=== PATIENT | male | born 2000 | race Caucasian/White ===

== ENCOUNTER 2024-11-26 15:41 | Emergency (ER) | payer MEDICAID, SELFPAY ==
[2024-11-26 15:45] VITALS: BP 131/78; PULSE 59; TEMP 36.8; O2SAT 98; BMI 30.3
--- NOTE | 2024-11-26 15:54 | ECG_ITS ---
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 Measurements Intervals [place] Rate: 58 P: 62 [place]: 140 QRS: 86 QRSD: 84 T: 65 QT: 410 QTc: 407 Interpretive Statements 1100 Sinus rhythm [address]LEV, PROBABLE NORMAL EARLY REPOL PATTERN Borderline ECG No previous ECG available for comparison Electronically Signed On 11-26-2024 20:58:43 EDT by JEROMY LEE M.D.
--- NOTE | 2024-11-26 15:54 | XR_ITS ---
[address] [address] Patient Name: JEFF SANTIAGO MRN: [id number] date: 2000 Sex: M Assigned Patient Location: ER Current Patient Location: ER Accession/Order Number: [id number] Exam Date: 11/26/2024 16:14 Report Date: 11/26/2024 16:14 At the request of: DENIA MUÑOZ Procedure: XR chest 2V PA AND LATERAL CHEST: CLINICAL HISTORY: pain COMPARISON: None FINDINGS: Unremarkable cardiomediastinal silhouette. Lungs clear. No effusion or pneumothorax. XR/XR chest 2V IMPRESSION: NO ACUTE CARDIOPULMONARY ABNORMALITY. Impression dictated by: Bruce Davenport M.D. 11/26/2024 4:14 PM Dictation Location: [place] [address] Electronically authenticated by: [id number] Y Date: 11/26/2024 16:14
--- NOTE | 2024-11-26 16:05 | ED.CHESTPAI1 ---
HPI - Chest Pain General Chief Complaint: Chest Pain Stated Complaint: CHEST PAINS Time Seen by Provider: 11/26/24 15:54 Source: patient Mode of arrival: walk-in Limitations: no limitations History of Present Illness HPI narrative: 24-year-old male presents for chief complaint of chest pain. He is currently in the rehab facility at [facility]. He states he has pressure to his chest. It is reproducible to palpation of the chest wall. Patient otherwise shows no signs of distress vital signs are stable. Denies a known history of chest pains or cardiac issues. Patient does state that he has been in the rehab facility for 30 days. Related Data Home Medications ?Medication ?Instructions ?Recorded ?Confirmed omeprazole 20 mg capsule,delayed 20 mg PO BID 11/26/24 11/26/24 release sucralfate 1 gram tablet (Carafate) 1 g PO TID 11/26/24 11/26/24 Allergies Allergy/AdvReac Type Severity Reaction Status Date / Time No Known Drug Allergies Allergy Verified 11/26/24 15:48 Review of Systems ROS Status of ROS 10 or more systems reviewed and unremarkable except as noted in history and below PFSH PFSH Social History Little interest or pleasure in doing things: not at all Feeling down, depressed, or hopeless: not at all Exam Narrative Exam Narrative: All Systems are negative except as noted/marked.All systems reviewed and otherwise negative Nurses note and vital signs reviewed and patient is not hypoxic. General: The patient appears well and in no apparent distress. Patient is resting comfortably on cart. Skin: Warm, dry, no pallor noted. There is no rash noted. Head: Normocephalic, atraumatic Eye: Normal conjunctiva, no drainage, EOMI. PERRL Ears, Nose, Mouth, and Throat: oral mucosa is moist. Nares patent. Mouth without vesicles. Ear canals patent. Tm's without Erythema Cardiovascular: Regular Rate and Rhythm reproducible chest wall pain and left anterior chest wall Respiratory: Patient is in no distress, no accessory muscle use, lungs are clear to auscultation, no wheezing, rales or rhonchi Back: non-tender, no CVA tenderness bilaterally to percussion. GI: Normal bowel sounds, no tenderness to palpation, no masses appreciated. No rebound, guarding, or rigidity noted. Musculoskeletal: The patient has no evidence of calf tenderness, no pitting edema, symmetrical pulses noted bilaterally Neurological: A&O x4, normal speech Psychiatric: Cooperative Constitutional Vital Signs, click to edit/add: Last Vital Signs Temp 98.2 F 11/26/24 15:45 Pulse 59 L 11/26/24 15:45 Resp 18 11/26/24 15:45 BP 131/78 11/26/24 15:45 Pulse Ox 98 11/26/24 15:45 O2 Del Method Room Air 11/26/24 15:45 Course Vital Signs Vital signs: Vital Signs Temperature 98.2 F 11/26/24 15:45 Pulse Rate 59 L 11/26/24 15:45 Respiratory Rate 18 11/26/24 15:45 Blood Pressure 131/78 11/26/24 15:45 Pulse Oximetry 98 11/26/24 15:45 Oxygen Delivery Method Room Air 11/26/24 15:45 Temperature 98.2 F 11/26/24 15:45 Pulse Rate 59 L 11/26/24 15:45 Respiratory Rate 18 11/26/24 15:45 Blood Pressure 131/78 11/26/24 15:45 Pulse Oximetry 98 11/26/24 15:45 Oxygen Delivery Method Room Air 11/26/24 15:45 MDM - Chest Pain MDM Narrative Medical decision making narrative: 24-year-old male presents for chief complaint of chest pain. He is currently in the rehab facility at [facility]. He states he has pressure to his chest. It is reproducible to palpation of the chest wall. Patient otherwise shows no signs of distress vital signs are stable. Denies a known history of chest pains or cardiac issues. Patient does state that he has been in the rehab facility for 30 days. Patient presented to the emergency room chief complaint of centralized chest pain with no radiation. Pain is reproducible with palpation of the chest area. Blood work including CBC CMP troponin and urinalysis were obtained. All were negative. Patient was medicated here with Toradol I did help alleviate some of his symptoms. Cardiac score is 0. Patient will be able to be discharged back to the rehab facility. Patient agrees with plan of care. He will be discharged home with chest wall pain instructions. Differential Diagnosis Differential diagnosis: Likely costochondritis and chest pain Medical Records Data Attestation: I reviewed the patient's medical records. Lab Data Attestation: I reviewed the patient's lab results. Labs: Lab Results 11/26/24 Range/Units 16:10 WBC 6.6 (4.0-11.0) 10^3/uL RBC 5.37 (4.70-6.10) 10^6/uL Hgb 16.0 (14.0-18.0) g/dL Hct 46.2 (42.0-54.0) % MCV 86.0 (80.0-94.0) fL MCH 29.8 (25.9-34.0) pg MCHC 34.6 (29.9-35.2) g/dL RDW 11.7 (11.0-15.0) % Plt Count 218 (150-450) 10^3/uL MPV 9.9 (9.5-13.5) fL Neut % (Auto) 60.4 (43.0-75.0) % Lymph % (Auto) 29.5 (20.5-60.0) % Wilcox % (Auto) 7.9 (1.7-12.0) % Eos % (Auto) 1.2 (0.9-7.0) % Baso % (Auto) 0.8 (0.2-2.0) % Neut # (Auto) 4.0 (1.4-6.5) 10^3/uL Lymph # (Auto) 2.0 (1.2-3.8) 10^3/uL Wilcox # (Auto) 0.5 (0.3-0.8) 10^3/uL Eos # (Auto) 0.1 (0.0-0.7) 10^3/uL Baso # (Auto) 0.1 (0.0-0.1) 10^3/uL Abs Immat Gran (auto) 0.01 (0.00-0.03) 10^3/uL Imm/Tot Granulo (auto) 0.2 (0.0-0.5) % ESR 2 (<=15) mm/hr PT 11.4 (9.0-11.6) sec INR 1.08 APTT 30.1 (22.3-36.2) sec Sodium 141 (136-145) mmol/L Potassium 4.6 (3.5-5.1) mmol/L Chloride 106 (98-107) mmol/L Carbon Dioxide 30.4 (21.0-32.0) mmol/L Anion Gap 9.2 BUN 10.0 (7.0-18.0) mg/dL Creatinine 0.90 (0.70-1.30) mg/dL Est GFR ( Amer) >60 (>=60 mL/min/1.73m^2) Est GFR (Non-Af Amer) >60 (>=60 mL/min/1.73m^2) BUN/Creatinine Ratio 11.1 Glucose 95 (74-106) mg/dL Calcium 8.5 (8.5-10.1) mg/dL Total Bilirubin 0.5 (0.2-1.0) mg/dL AST 29 (15-37) U/L ALT 46 (16-63) U/L Alkaline Phosphatase 115 (46-116) U/L Troponin I High Sens 5.9 (4.0-76.1) pg/mL Total Protein 6.9 (6.4-8.2) g/dL Albumin 3.9 (3.4-5.0) g/dL Globulin 3.0 g/dL Albumin/Globulin Ratio 1.3 Salicylates <2.8 (<=19.9) mg/dL Acetaminophen <2.0 L (10.0-30.0) ug/mL Ethanol Quant <3 mg/dL Imaging Data Chest x-ray: Radiologist's impression: ITS Impressions Chest X-Ray 11/26/24 15:54 IMPRESSION: NO ACUTE CARDIOPULMONARY ABNORMALITY. Impression dictated by: Bruce Davenport M.D. 11/26/2024 4:14 PM Dictation Location: [place] [address] Electronically authenticated by: [id number] Y Date: 11/26/2024 16:14 ECG Data Interpretation: 1552 normal sinus rhythm with a rate of 58 bpm LA interval 140 ms QRS duration [address] elevation or depression, no STEMI Heart Score History: Slightly/Non-Suspicious ECG: Normal Age: <45 years Risk Factors: No Risk Factors Troponin: <Normal Limit Total Heart Score Recommendations & Risks:: 0 Discharge Plan Discharge Chief Complaint: Chest Pain Clinical Impression: Chest pain, Chest wall pain Patient Disposition: Home, Self-Care Time of Disposition Decision: 17:05 Condition: Good Prescriptions / Home Meds: No Action sucralfate [Carafate] 1 gram tablet 1 g PO TID omeprazole 20 mg capsule,delayed release(DR/EC) 20 mg PO BID Print Language: Upper Sorbian Instructions: Chest Pain (ED), Chest Wall Pain (ED)
[2024-11-26 16:21] LABS: Hematocrit 46.2 % (42.0-54.0); Hemoglobin 16.0 g/dL (14.0-18.0); Immature Granulocytes Abs Auto 0.01 10^3/uL (0.00-0.03); Immature Granulocytes Pct Auto 0.2 % (0.0-0.5); Lymphocytes Absolute Auto 2.0 10^3/uL (1.2-3.8); Mean Corpuscular HGB Conc 34.6 g/dL (29.9-35.2); Mean Corpuscular Hemoglobin 29.8 pg (25.9-34.0); Mean Corpuscular Volume 86.0 fL (80.0-94.0); Platelet Count 218 10^3/uL (150-450); Red Blood Count 5.37 10^6/uL (4.70-6.10); White Blood Count 6.6 10^3/uL (4.0-11.0)
[2024-11-26] MEDS: KETOROLAC TROMETHAMINE 30 MG/ML VIAL IVP (16:22)
[2024-11-26 16:35] LABS: INR 1.08; Partial Thromboplastin Time 30.1 sec (22.3-36.2); Prothrombin Time 11.4 sec (9.0-11.6)
[2024-11-26 16:43] LABS: Alanine Aminotransferase 46 U/L (16-63); Albumin Globulin Ratio 1.3; Albumin Level 3.9 g/dL (3.4-5.0); Alkaline Phosphatase 115 U/L (46-116); Anion Gap 9.2; Aspartate Amino Transferase 29 U/L (15-37); Blood Urea Nitrogen 10.0 mg/dL (7.0-18.0); Calcium 8.5 mg/dL (8.5-10.1); Carbon Dioxide 30.4 mmol/L (21.0-32.0); Chloride 106 mmol/L (98-107); Estimated GFR (African America >60 (>=60 mL/min/1.73m^2); Estimated GFR (Non-African Ame >60 (>=60 mL/min/1.73m^2); Globulin 3.0 g/dL; Glucose 95 mg/dL (74-106); Potassium 4.6 mmol/L (3.5-5.1); Sodium 141 mmol/L (136-145); Total Protein 6.9 g/dL (6.4-8.2)
[2024-11-26 16:51] LABS: Salicylate <2.8 mg/dL (<=19.9)
[2024-11-26 16:53] LABS: Acetaminophen <2.0 ug/mL (10.0-30.0)
== END 2024-11-26 17:21 | disposition home or self-care (01) ==
LOC: ER 17:24
PROVIDERS: Physician Assistant; Emergency Provider Emergency Medicine
DX: R07.89 Other chest pain (principal)
CPT/HCPCS: 36415; 71046; 80053; 80179; 80307; 80320; 80329; 84484; 85025; 85610; 85652; 85730; 93005; 96374; 99285; J1885